=== PATIENT | female | born 1980 | race Hispanic/Latino ===

== ENCOUNTER 2017-12-17 13:26 | Outpatient (CLI) | payer OTHER ==
--- NOTE | 2017-12-17 16:40 | ULT ---
THYROID ULTRASOUND: 12/17/17 HISTORY: Thyroid goiter. COMPARISON: None. TECHNIQUE: Sagittal and transverse imaging of the thyroid gland is performed. FINDINGS: Mild heterogeneity throughout the thyroid gland without discrete solid or cystic nodules. Thyroid ist hmus measures 0.4 cm. Right thyroid lobe measures 4.5 x 1.5 x 1.8 cm. Left thyroid lobe measures 3.8 x 1.0 x 1.6 cm. IMPRESSION: Mild heterogeneity of the thyroid gland without discrete nodule. POS: DEWEY
== END 2017-12-17 13:27 | disposition home or self-care (01) ==
LOC: ULT 13:26
PROVIDERS: ATTEND Internal Medicine Endocrinology, Diabetes & Metabolism
DX: E04.9 Nontoxic goiter, unspecified (principal); E06.3 Autoimmune thyroiditis; E07.89 Other specified disorders of thyroid
CPT/HCPCS: 76536